=== PATIENT | male | born 1990 | race Caucasian/White ===

== ENCOUNTER 2018-03-07 20:35 | Inpatient (IN) | payer MEDICAID ==
[~2018-03-07] VITALS: Ht 170.2 cm; Wt 82.1 kg
[2018-03-07 20:38] VITALS: Ht 170.2 cm; Wt 82.1 kg
[2018-03-07 23:37] LABS: microscopic required? NO
[2018-03-08] VITALS (8 sets, daily range): BP systolic 100–117; BP diastolic 51–67
[2018-03-08 00:10] LABS: UA SPECIFIC GRAVITY <=1.005 (1.005-1.035); urine erythrocyte NEGATIVE (NEGATIVE)
[2018-03-08 00:14] LABS: BASOPHIL % 0.8 % (0-2); CALCIUM 8.1 mg/dL (8.5-10.1); CARBON DIOXIDE 30.7 mmol/L (21-32); CHLORIDE SERUM 106 mmol/L (98-107); CREATININE SERUM 0.7 mg/dL (0.7-1.3); GFR1 > 60 mL/min; GLUCOSE SERUM 89 mg/dL (74-106); PLATELET COUNT 179 x10^3mcL (130-400); POTASSIUM SERUM 3.8 mmol/L (3.5-5.1); RED CELL DISTRIBUTION WIDTH 13.5 % (11.5-14.5); SODIUM SERUM 142 mmol/L (136-145)
[2018-03-08 00:21] LABS: ALBUMIN 3.6 g/dL (3.4-5.0); ALKALINE PHOSPHATASE 79 U/L (46-116); ALT/SGPT 28 U/L (16-63); AST/SGOT 19 U/L (15-37); BILIRUBIN TOTAL 0.4 mg/dL (0.20-1.00); LIPASE 209 IU/L (73-393); TOTAL PROTEIN, SERUM 6.5 g/dL (6.4-8.2)
[2018-03-08 01:19] LABS: T3 TOTAL 1.12 ng/mL
[2018-03-08 01:23] LABS: MAGNESIUM 2.2 mg/dL (1.8-2.4); PHOSPHOROUS 4.1 mg/dL (2.5-4.9)
[2018-03-08 01:31] LABS: CHOLESTEROL/HDL RATIO 2.9
[2018-03-08 01:56] LABS: FREE T4 0.98 ng/dL (0.76-1.46); FREE THYROXINE INDEX 2.5 ug/dL (1.4-4.5)
[2018-03-08 03:58] LABS: AMPHETAMINE QUAL UR NONE DETECTED (NEG <=1000)
[2018-03-08 06:49] LABS: PLATELET COUNT 190 x10^3mcL (130-400); RED CELL DISTRIBUTION WIDTH 13.7 % (11.5-14.5)
[2018-03-08 06:51] LABS: BASOPHIL % 0 % (0-2)
[2018-03-08 06:58] LABS: CALCIUM 8.8 mg/dL (8.5-10.1); CARBON DIOXIDE 26.8 mmol/L (21-32); CHLORIDE SERUM 106 mmol/L (98-107); CREATININE SERUM 0.8 mg/dL (0.7-1.3); GFR1 > 60 mL/min; GLUCOSE SERUM 149 mg/dL (74-106); MAGNESIUM 2.1 mg/dL (1.8-2.4); POTASSIUM SERUM 3.8 mmol/L (3.5-5.1); SODIUM SERUM 140 mmol/L (136-145)
[2018-03-09 05:04] VITALS: BP 95/53
[2018-03-09 06:23] LABS: CALCIUM 8.5 mg/dL (8.5-10.1); CARBON DIOXIDE 29.5 mmol/L (21-32); CHLORIDE SERUM 109 mmol/L (98-107); CREATININE SERUM 0.6 mg/dL (0.7-1.3); GFR1 > 60 mL/min; GLUCOSE SERUM 115 mg/dL (74-106); MAGNESIUM 2.2 mg/dL (1.8-2.4); PHOSPHOROUS 3.4 mg/dL (2.5-4.9); POTASSIUM SERUM 4.3 mmol/L (3.5-5.1); SODIUM SERUM 144 mmol/L (136-145)
[2018-03-09 06:42] LABS: BASOPHIL % 0.3 % (0-2); PLATELET COUNT 201 x10^3mcL (130-400); RED CELL DISTRIBUTION WIDTH 13.4 % (11.5-14.5)
[2018-03-09 09:06] VITALS: BP 95/49
[2018-03-09 13:30] VITALS: BP 93/47
[2018-03-09] MEDS ORDERED: COL100 PO (13:35)
[2018-03-09] MEDS ORDERED: LEVAQUIN750 MG PO (13:43)
[2018-03-09] MEDS ORDERED: SEN PO (13:44)
[2018-03-09] MEDS ORDERED: CYCLOBENZAPRINE5 MG PO (13:58)
[2018-03-09] MEDS ORDERED: LAC PO (14:00)
[2018-03-09 14:03] VITALS: BP 93/47
== END 2018-03-09 14:36 | disposition home or self-care (01) | DRG 347 ==
LOC: ED 20:35 → DU 23:31
PROVIDERS: Family Medicine; Specialist
DX: M54.5 Low back pain (principal); E83.39 Other disorders of phosphorus metabolism; R30.0 Dysuria; J98.11 Atelectasis; G57.11 Meralgia paresthetica, right lower limb
CPT/HCPCS: 83880; 84439; 87491; 87591; J1100; J1885; J1956; J2270; J2405; J2930; J3010; J7030; J7620; Q0162